=== PATIENT | male | born 1970 | race Two or more races ===

== ENCOUNTER 2022-08-11 18:49 | Emergency (ER) | payer MEDICAID, OTHER ==
[~2022-08-11] VITALS: Ht 193 cm; Wt 120.5 kg
[2022-08-11] MEDS ORDERED: ONDANSETRON HCL 4 MG/2 ML VIAL IM ONE (19:00)
[2022-08-11] MEDS ORDERED: ONDANSETRON HCL 4 MG/2 ML VIAL IV ONE (19:15)
[2022-08-11] MEDS ORDERED: SODIUM CHLORIDE 0.9% 1,000 ML IV ONE ×2 (19:15)
[2022-08-11] MEDS ORDERED: MECL25TA18 PO (19:17)
[2022-08-11 19:36] LABS: Basophils # (auto) 0.1 10 ^3/uL (0-0.2); Basophils % (auto) 0.4 % (0.0-2.0); Eosinophils # (auto) 0 10 ^3/uL (0-0.8); Eosinophils % (auto) 0.1 % (0.0-7.0); Monocytes # (auto) 0.2 10 ^3/uL (0-1.3); Neutrophils % (auto) 90.7 % (37.0-80.0); Red Cell Distribution Width 14.8 % (11.8-14.3)
[2022-08-11 19:53] LABS: Hematocrit 48.3 % (41.0-53.0); Hemoglobin 16.8 g/dL (13.5-17.5); Lymphocytes % (auto) 7.5 % (10.0-50.0); Mean Corpuscular Hemoglobin 28.5 pg (28.0-32.0); Mean Corpuscular Hgb Conc. 34.8 g/dL (32.0-36.0); Mean Corpuscular Volume 81.9 fL (80.0-100.0); Monocytes % (auto) 1.3 % (0.0-12.0); Neutrophils # (auto) 12.7 10 ^3/uL (1.6-8.6); Nucleated Red Blood Cells % 0.2 %; Red Blood Cells 5.89 10^6/uL (4.5-5.90)
[2022-08-11 20:01] LABS: Albumin 4.1 g/dL (3.4-5.0); BUN/Creatinine Ratio 24.3; Calcium 9.5 mg/dL (8.5-10.1); Potassium 3.9 mmol/L (3.5-5.1)
[2022-08-11 20:08] LABS: Bilirubin, Total 0.7 mg/dL (0.2-1.0); Total Protein 7.8 g/dL (6.4-8.2)
[2022-08-11] MEDS ORDERED: cefTRIAXone 1GM/50ML D5W 50 ML IV ONE (20:30)
[2022-08-11] MEDS ORDERED: LEVO-28 PO (20:54)
[2022-08-11 23:00] VITALS: BP 150/94
== END 2022-08-11 23:44 | disposition home or self-care (01) ==
LOC: ER 18:51
DX: J06.9 Acute upper respiratory infection, unspecified (principal); R42 Dizziness and giddiness; E11.65 Type 2 diabetes mellitus with hyperglycemia
CPT/HCPCS: 36415; 70450; 71045; 74176; 80053; 85025; 93005; 96365; 96366; 96375; 99285; J0696; J2405; J7030

== ENCOUNTER 2023-07-14 07:47 | Emergency (ER) | payer MEDICAID ==
[~2023-07-14] VITALS: Ht 193 cm; Wt 124.9 kg
[~2023-07-14 07:47] MED LIST: LEVO500T91 PO; MECL1TAB32 PO
[2023-07-14 09:23] VITALS: BP 143/85; RESP 18; TEMP 97.7; O2SAT 97
[2023-07-14 09:32] VITALS: PULSE 72
== END 2023-07-14 09:48 | disposition home or self-care (01) ==
LOC: ER 07:47
DX: I10 Essential (primary) hypertension (principal)
CPT/HCPCS: 82962; 93005

== ENCOUNTER 2024-08-23 01:10 | Inpatient (IN) | payer MEDICAID ==
[~2024-08-23] VITALS: Ht 190.5 cm; Wt 100.0 kg
[~2024-08-23 01:10] MED LIST changes: +MECL-90 PO; -MECL1TAB32 PO
--- NOTE | 2024-08-23 01:52 | ECG ---
[facility] Test Date: 2024-08-23 Test Time: 01:14:25 Pat Name: DONNELL ALANIS Department: ER Room: [address] [place] [address] Gender: M Control Officer: YOAN : 1970 Requested By: SHARAD CHRISTIANSON Order Number: [id number] Reading MD: Kel Hong Measurements Intervals [place] Rate: 85 P: 22 MT: 178 QRS: -41 QRSD: 122 T: 21 QT: 400 QTc: 476 Interpretive Statements Sinus rhythm Ventricular bigeminy RBBB and LAFB Electronically Signed On 08-30-2024 14:52:38 PST by Kel Hong Please click the below link to view image of tracing.
--- NOTE | 2024-08-23 01:57 | ED.PDOC ---
History of Present Illness HPI Comments 54-year-old male came to emergency room by your EMS due to dizziness. Patient has history of hypertension and diabetes but has poor compliance to his medications. Patient states he was asleep earlier, when he woke up at 2330 hours due sudden onset dizziness, associated most of nausea vomiting. States dizziness worsened head movements. Does have history of vertigo. Patient's blood pressure on scene was 187/150 mmHg Chief Complaint: Dizziness Time Seen by MD: 01:54 Primary Care Provider: UNK Reviewed Notes: Senior Research Associate Notes Allergies: Coded Allergies: NO KNOWN ALLERGIES (Unverified , 08/11/22) Home Meds Active Scripts Levofloxacin Hemihydrate (LEVOFLOXACIN) 500 Mg Tab, 1 TAB PO DAILY for 7 Days, #7 TAB Prov:ANGELA YOON MD 08/11/22 Meclizine Hcl (Meclizine Hcl) 25 Mg Tab, 25 MG PO DAILY PRN for 10 Days, #10 MG Prov:ANGELA YOON MD 08/11/22 Information Source: Patient Mode of Arrival: EMS Severity: Moderate Timing: Hours Duration: Intermittent Review of Systems REVIEW OF SYSTEMS: No fever, no chills, or fatigue HEENT: No sore throat, no earache, no congestion, no neck pain. Cardiac: No chest pain. No palpitations. Lungs: No shortness of breath, no cough. GI: (+) nausea, (+) vomiting, no diarrhea, no constipation, no abdominal pain : No dysuria, frequency, or urgency. No hematuria. Musculoskeletal: No joint pain , no joint swelling, no extremity edema. Skin: No rash, no itching. Neuro: No headache, (+) dizziness, no weakness Vital Signs Vital Signs Date Time Temp Pulse Resp B/P (MAP) Pulse Ox O2 Delivery O2 Flow Rate FiO2 08/23/24 01:58 85 08/23/24 01:25 98.9 20 160/97 (118) 96 Physical Exam General: Awake, alert and oriented. No acute distress. Skin: Skin in warm, dry and intact. Appropriate color for ethnicity. Nailbeds pink with no cyanosis. HEENT: The head is normocephalic and atraumatic. Conjunctivae are clear without exudates or hemorrhage. Sclera is non-icteric. EOM are intact. No signs of nystagmus. Eyelids are normal in appearance without swelling or lesions. Oral mucosa is pink and moist Neck: The neck is supple with normal range of motion. No JVD. Cardiac: Heart rate and rhythm are normal. No murmurs, gallops, or rubs are auscultated. Respiratory: No signs of respiratory distress. Lung sounds are clear in all lobes bilaterally without rales, ronchi, or wheezes. Abdominal: Abdomen is soft, non-tender without distention. Bowel sounds are present and normoactive in all four quadrants. Extremities: Upper and lower extremities are atraumatic in appearance without deformity or edema. Neurological: The patient is awake, alert and oriented to person, place, and time with normal speech. Speech is clear. There is no facial asymmetry. Psychiatric: Appropriate mood and affect. Good judgement and insight. No visual or auditory hallucinations. Past Medical History PAST MEDICAL HISTORY: DM, HTN Past Medical History (Other): Vertigo Surgical History: Denies all surgeries Surgical History (Other): Back surgery, neck ablation Family History Family History: Reviewed,noncontributory to illness Social History Smoker: Non-Smoker Alcohol: Denies ETOH Use Drugs: Denies Drug Use Lives In: Home Was a procedure done? Was a procedure done?: No EKG EKG : Pulse Rate (adult): 85 Cardiac Rhythm: NSR Comments Ventricular bigeminy Differential Dx Considerations may include: Anemia, electrolyte imbalance, vertigo, hypertensive urgency X-Ray, Labs, Meds, VS Vital Signs Date Time Temp Pulse Resp B/P (MAP) Pulse Ox O2 Delivery O2 Flow Rate FiO2 08/23/24 01:58 85 08/23/24 01:25 98.9 86 20 160/97 (118) 96 08/23/24 01:14 85 Lab Test 08/23/24 01:52 Range/Units White Blood Count 9.9 4.4-10.8 10^3/uL Red Blood Count 5.69 4.5-5.90 10^6/uL Hemoglobin 16.0 13.5-17.5 g/dL Hematocrit 46.6 41.0-53.0 % Mean Corpuscular Volume 82.0 80.0-100.0 fL Mean Corpuscular Hemoglobin 28.2 28.0-32.0 pg Mean Corpuscular Hemoglobin Concent 34.4 32.0-36.0 g/dL Red Cell Distribution Width 14.1 11.8-14.3 % Platelet Count 184 140-450 10^3/uL Mean Platelet Volume 9.3 6.9-10.8 fL Neutrophils (%) (Auto) 73.6 37.0-80.0 % Lymphocytes (%) (Auto) 15.8 10.0-50.0 % Monocytes (%) (Auto) 5.9 0.0-12.0 % Eosinophils (%) (Auto) 4.0 0.0-7.0 % Basophils (%) (Auto) 0.7 0.0-2.0 % Neutrophils # (Auto) 7.3 1.6-8.6 10 ^3/uL Lymphocytes # (Auto) 1.6 0.4-5.4 10 ^3/uL Monocytes # (Auto) 0.6 0-1.3 10 ^3/uL Eosinophils # (Auto) 0.4 0-0.8 10 ^3/uL Basophils # (Auto) 0.1 0-0.2 10 ^3/uL Nucleated Red Blood Cells 0.2 % Sodium Level 138 136-145 mmol/L Potassium Level 4.1 3.5-5.1 mmol/L Chloride Level 104 98-107 mmol/L Carbon Dioxide Level 27 20-31 mmol/L Anion Gap 7 5-15 Blood Urea Nitrogen 18 9-23 mg/dL Creatinine 1.09 0.700-1.30 mg/dL Glomerular Filtration Rate Calc 81 >90 mL/min BUN/Creatinine Ratio 16.5 10.0-20.0 Serum Glucose 242 H 74-106 mg/dL Calcium Level 9.8 8.7-10.4 mg/dL Magnesium Level 1.8 1.6-2.6 mg/dL Total Bilirubin 0.4 0.2-1.0 mg/dL Aspartate Amino Transferase (AST) 19 13-40 U/L Alanine Aminotransferase (ALT) 23 7-40 U/L Alkaline Phosphatase 68 46-116 U/L Troponin I High Sensitivity 4 </=54 ng/L Total Protein 7.1 5.7-8.2 g/dL Albumin 4.3 3.2-4.8 g/dL Lipase 43 12-53 U/L Time of 1ST Reevaluation: 01:51 Reevaluation 1ST: Unchanged Patient Education/Counseling: Diagnosis, Treatment Family Education/Counseling: No Family Present Departure 1 Departure Time of Disposition: 03:46 Impression: Primary Impression: Vertigo Additional Impressions: Intractable nausea and vomiting Uncontrolled hypertension Hyperglycemia Disposition: ADMITTED INPATIENT Condition: Stable Comments 54-year-old male who presents to the emergency department with symptoms of his typical vertigo, associated with vomiting. Patient initially improved upon arrival to the ED however he continued to vomit. Admit to - I reviewed the following notes from the pt's past medical encounters: N/A The following tests were ordered, and results were reviewed by me: (See diagnostic results section) The following test were independently interpreted by me: EKG Additional information was gathered from interviewing the following independent historians: (N/A) I reviewed and agreed with the following test results read by other providers: N/A I discussed treatments and results with medical personnel and: N/A Critical Care Note Critical Care Time?: No Stability Stability form required: No I personally scribed for SHARAD CHRISTIANSON MD ([employer]) on 08/23/24 at 01:57. Electronically submitted by Juan Ramon Cee ([email or web address]). I personally scribed for SHARAD CHRISTIANSON MD ([email or web address]) on 08/23/24 at 01:58. Electronically submitted by Juan Ramon Cee ([email or web address]). SHARAD CHRISTIANSON MD Aug 23, 2024 01:57
[2024-08-23 02:25] LABS: Alanine Aminotransferase 23 U/L (7-40); Alkaline Phosphatase 68 U/L (46-116); Anion Gap 7 (5-15); Aspartate Aminotransferase 19 U/L (13-40); BUN/Creatinine Ratio 16.5 (10.0-20.0); Blood Urea Nitrogen 18 mg/dL (9-23); Calcium 9.8 mg/dL (8.7-10.4); Carbon Dioxide 27 mmol/L (20-31); Chloride 104 mmol/L (98-107); Magnesium 1.8 mg/dL (1.6-2.6); Potassium 4.1 mmol/L (3.5-5.1); Sodium 138 mmol/L (136-145)
[2024-08-23 02:26] LABS: Albumin 4.3 g/dL (3.2-4.8); Bilirubin, Total 0.4 mg/dL (0.2-1.0); Total Protein 7.1 g/dL (5.7-8.2)
[2024-08-23 02:44] LABS: Glucose 242 mg/dL (74-106)
[2024-08-23 02:45] LABS: Basophils # (auto) 0.1 10 ^3/uL (0-0.2); Basophils % (auto) 0.7 % (0.0-2.0); Eosinophils # (auto) 0.4 10 ^3/uL (0-0.8); Hematocrit 46.6 % (41.0-53.0); Lymphocytes # (auto) 1.6 10 ^3/uL (0.4-5.4); Lymphocytes % (auto) 15.8 % (10.0-50.0); Mean Corpuscular Hemoglobin 28.2 pg (28.0-32.0); Mean Corpuscular Hgb Conc. 34.4 g/dL (32.0-36.0); Monocytes # (auto) 0.6 10 ^3/uL (0-1.3); Monocytes % (auto) 5.9 % (0.0-12.0); Neutrophils # (auto) 7.3 10 ^3/uL (1.6-8.6); Neutrophils % (auto) 73.6 % (37.0-80.0); Nucleated Red Blood Cells % 0.2 %; Platelet Count (auto) 184 10^3/uL (140-450); Red Blood Cells 5.69 10^6/uL (4.5-5.90); Red Cell Distribution Width 14.1 % (11.8-14.3); White Blood Cell 9.9 10^3/uL (4.4-10.8)
[2024-08-23 03:09] LABS: Lipase 43 U/L (12-53)
[2024-08-23 04:06] VITALS: PULSE 84; RESP 20; O2SAT 95
[2024-08-23] MEDS: ONDANSETRON HCL 4 MG/2 ML VIAL IV ONE (04:09)
[2024-08-23] MEDS: MECLIZINE HCL 25 MG TAB PO ONE (04:11)
[2024-08-23] MEDS: SODIUM CHLORIDE 0.9% 1,000 ML IV ONE (04:11)
[2024-08-23] MEDS: hydrALAZINE HCL 20 MG/ML VL IV ONE (04:20)
[2024-08-23 10:02] VITALS: TEMP 97.7
[2024-08-23] MEDS ORDERED: MECLIZINE HCL 25 MG TAB PO PRN (10:15)
[2024-08-23] MEDS ORDERED: MORPHINE SULFATE INJ 2 MG/ml SYRG IV PRN (10:15)
[2024-08-23] MEDS ORDERED: ONDANSETRON HCL 4 MG/2 ML VIAL IV PRN (10:15)
[2024-08-23] MEDS ORDERED: DEXTROSE (50%) 50ML SYRG IV PRN (10:15)
[2024-08-23] MEDS ORDERED: hydrALAZINE HCL 20 MG/ML VL IV PRN (10:15)
[2024-08-23] MEDS ORDERED: NITROGLYCERIN 0.4 MG SL TAB SL PRN (10:15)
--- NOTE | 2024-08-23 10:21 | DVHHP2 ---
History of Present Illness Reason for Visit: DIZZINESS LIKELY DUE TO UNCONTROLLED HYPERTENSION History of Present Illness This is a 54-year-old male with history of hypertension and type 2 DM who prese nts to the ED via EMS due to dizziness associated with nausea and vomiting. Upon evaluation of patient in the emergency room, he reports history of vertigo is currently seeing a neurologist down the [place], takes meclizine. He denies recent injury or trauma to his head. He states what prompted him to report to the emergency room is his elevated blood pressure associated with nausea and vomiting. He will be admitted under hospitalist care to the telemetry unit for further monitoring. He denies fever, chills, headache, palpitation, chest pain, shortness of breath, abdominal pain, diarrhea, constipation and other associated symptoms. Plan has been discussed with the patient in which all questions concerns have been addressed. 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 Endocrine: Diabetes Past Surgical History Neck ablation Back surgery Family History: None Smoke: No ALCOHOL: none Drugs: None Lives: with Family Domestic Violence: Neg Review of Systems Gastrointestinal: Nausea, Vomiting Allergies: Coded Allergies: NO KNOWN ALLERGIES (Unverified , 08/11/22) Medications Current Medications Medications Dose Ordered Sig/Jose Route Start Time Stop Time Status Last Admin Dose Admin Meclizine HCl 25 mg DAILY PRN PO 08/23/24 10:15 UNV Sodium Chloride 1,000 ml @ 60 mls/hr [id number] IV 08/23/24 10:15 UNV Ondansetron HCl 4 mg Q4HP PRN IV 08/23/24 10:15 UNV Acetaminophen 650 mg Q6HP PRN PO 08/23/24 10:15 UNV Nitroglycerin 0.4 mg Q5MINP PRN SL 08/23/24 10:15 UNV Morphine Sulfate 2 mg Q30M PRN IV 08/23/24 10:15 UNV Diagnostic Test (Pha) 1 strip ACHS 08/23/24 11:30 UNV Insulin Human Regular ACHS SC 08/23/24 11:30 UNV Dextrose 50 ml UD PRN IV 08/23/24 10:15 UNV Exam Vital Signs Vital Signs Date Time Temp Pulse Resp B/P (MAP) Pulse Ox O2 Delivery O2 Flow Rate FiO2 08/23/24 10:02 97.7 78 20 136/84 (101) 95 97.7 08/23/24 09:45 Room Air* 0 21 General Appearance: Alert, Oriented X3, Cooperative, No acute distress HEENT: Atraumatic, PERRLA, Mucous membr. moist/pink Respiratory: Clear to auscultation, Normal air movement Cardiovascular: Normal S1, Normal S2, No murmurs Abdominal: Normal bowel sounds, Soft, No tenderness, No hepatospenomegaly, No masses Extremities: No clubbing, No cyanosis, Normal pulses, No tenderness/swelling Skin: No rashes, No breakdown, No significant lesion Neuro: Normal gait, Normal speech, Strength at 5/5 X4 ext, Normal tone, Sensation intact, Cranial nerves 3-12 NL, Reflexes 2+ Psych/Mental Status: Mental status NL, Mood NL Labs/Xrays Labs Test 08/23/24 01:52 Range/Units White Blood Count 9.9 4.4-10.8 10^3/uL Red Blood Count 5.69 4.5-5.90 10^6/uL Hemoglobin 16.0 13.5-17.5 g/dL Hematocrit 46.6 41.0-53.0 % Mean Corpuscular Volume 82.0 80.0-100.0 fL Mean Corpuscular Hemoglobin 28.2 28.0-32.0 pg Mean Corpuscular Hemoglobin Concent 34.4 32.0-36.0 g/dL Red Cell Distribution Width 14.1 11.8-14.3 % Platelet Count 184 140-450 10^3/uL Mean Platelet Volume 9.3 6.9-10.8 fL Neutrophils (%) (Auto) 73.6 37.0-80.0 % Lymphocytes (%) (Auto) 15.8 10.0-50.0 % Monocytes (%) (Auto) 5.9 0.0-12.0 % Eosinophils (%) (Auto) 4.0 0.0-7.0 % Basophils (%) (Auto) 0.7 0.0-2.0 % Neutrophils # (Auto) 7.3 1.6-8.6 10 ^3/uL Lymphocytes # (Auto) 1.6 0.4-5.4 10 ^3/uL Monocytes # (Auto) 0.6 0-1.3 10 ^3/uL Eosinophils # (Auto) 0.4 0-0.8 10 ^3/uL Basophils # (Auto) 0.1 0-0.2 10 ^3/uL Nucleated Red Blood Cells 0.2 % Sodium Level 138 136-145 mmol/L Potassium Level 4.1 3.5-5.1 mmol/L Chloride Level 104 98-107 mmol/L Carbon Dioxide Level 27 20-31 mmol/L Anion Gap 7 5-15 Blood Urea Nitrogen 18 9-23 mg/dL Creatinine 1.09 0.700-1.30 mg/dL Glomerular Filtration Rate Calc 81 >90 mL/min BUN/Creatinine Ratio 16.5 10.0-20.0 Serum Glucose 242 H 74-106 mg/dL Calcium Level 9.8 8.7-10.4 mg/dL Magnesium Level 1.8 1.6-2.6 mg/dL Total Bilirubin 0.4 0.2-1.0 mg/dL Aspartate Amino Transferase (AST) 19 13-40 U/L Alanine Aminotransferase (ALT) 23 7-40 U/L Alkaline Phosphatase 68 46-116 U/L Troponin I High Sensitivity 4 </=54 ng/L Total Protein 7.1 5.7-8.2 g/dL Albumin 4.3 3.2-4.8 g/dL Lipase 43 12-53 U/L Assessment/Plan Assessment/Plan Dizziness likely due to uncontrolled hypertension--patient reports to ED via EMS due to dizziness associated with nausea and vomiting Patient states history of ongoing vertigo [place] and takes meclizine Patient states what prompted him to come to the ED was due to the associated symptoms Admit to telemetry for continuous monitoring Reviewed CBC which is normal Reviewed BMP which is normal Orthostatic BP Q shift IV hydration Resume meclizine as prescribed We will consider to consult neurologist if further evaluation is needed We will consider carotid Doppler study if needed Uncontrolled hypertension IV hydralazine 10 mg p.r.n. SBP greater than 160 mmHg Start Norvasc 5 mg p.o. now and daily Continue to monitor BP Type 2 DM HGB A1c pending 1800 ADA diet Regular insulin mild SS a.c. and HS Accu-Cheks per protocol Consult ems educator to discuss diet and medical regimen --poor compliant Reconcile home medication DVT prophylaxis not indicated patient ambulatory PUD prophylaxis not indicated Labs in a.m. Discussed plan of care with the patient in which all questions concerns have been addressed Plan discussed with: Patient My Orders Orders - ASIYA JOYNER POLE SETTER Procedure Category Date Status Time Meclizine Tablet PHA 08/23/24 Logged (Antivert Tablet) 10:15 Orthostatic Vital ORDERS 08/23/24 Transmitted Signs 10:03 Orthostatic Vital ORDERS 08/24/24 Transmitted Signs 10:03 Admit ADMIT 08/23/24 Transmitted 10:03 2 Gm Sodium Diet DIET 08/23/24 Transmitted Lunch Sodium Chloride 0.9% PHA 08/23/24 Logged 10:15 Ondansetron Hcl PHA 08/23/24 Logged (Zofran) 10:15 Complete Blood Count LAB 08/24/24 Verified 04:00 Comprehensive LAB 08/24/24 Verified Metabolic Panel 04:00 Condition: Fair ANDREEA 08/23/24 In Process 10:03 Acetaminophen Tablet MERGED WITH [facility] 08/23/24 Logged (Tylenol Tablet) 10:15 Bedrest With Bathroom [facility] 08/23/24 In Process Privileg 10:03 Sequential [facility] 08/23/24 In Process Compression Device Nitroglycerin MERGED WITH [facility] 08/23/24 Logged Sublingual (Ntrostat 10:15 Morphine Sulfate MERGED WITH [facility] 08/23/24 Logged Injection 10:15 Stat Ekg For Chest [facility] 08/23/24 In Process Pain 10:03 Notify Of Changes [facility] 08/23/24 In Process From Base 10:03 Medical Certification Specialist For [facility] 08/23/24 In Process 24 Hours 10:03 Emergency Dysrhythmia [facility] 08/23/24 In Process Protocol 10:03 Rhythm Strips Once [facility] 08/23/24 In Process Every Shift 10:03 Oxygen By Nasal RT 08/23/24 Transmitted Cannula 10:03 Glucose Blood MERGED WITH [facility] 08/23/24 Logged (Accu-Chek Comfort 11:30 Insulin R (Human) PHA 08/23/24 Logged (Insulin R) 11:30 Dextrose 50% Syringe PHA 08/23/24 Logged 10:15 Hemoglobin A1c LAB 08/23/24 Logged 10:07 Date of Service: Aug 23, 2024 Billing Provider: ASIYA JOYNER Common Visit Codes: [id number] INP/OBS CARE (HIGH) ASIYA JOYNER POLE SETTER Aug 23, 2024 10:21
[2024-08-23 10:28] LABS: Urine Bacteria None Seen /hpf (None Seen)
[2024-08-23] MEDS: amLODIPine BESYLATE 5 MG TAB PO ONE (10:36)
[2024-08-23] MEDS: SODIUM CHLORIDE 0.9% 1,000 ML IV SCH (10:41)
[2024-08-23] MEDS: ACETAMINOPHEN 325 MG TAB PO PRN (10:45)
[2024-08-23 11:06] LABS: Urine Blood Negative /uL (Negative); Urine Clarity Clear (Clear); Urine Color Yellow (Yellow); Urine Protein, UAD TRACE (Negative); Urine Specific Gravity 1.031 (1.001-1.035); Urine Squamous Epithelial Cell None Seen /hpf (<5); Urine Urobilinogen Normal (Negative); Urine WBC 2 /hpf (0 - 3)
[2024-08-23] MEDS: ACCU-CHEK COMFORT CURVE STRIP VI SCH (11:52)
[2024-08-23] MEDS: InsuLIN REG 1unit/0.01ml Soln (100units/ml) SC SCH (11:59)
[2024-08-23 16:19] VITALS: BP 131/77; PULSE 73; RESP 15; O2SAT 95
[2024-08-24] MEDS ORDERED: amLODIPine BESYLATE 5 MG TAB PO SCH (10:00)
== END 2024-08-23 17:10 | disposition left against medical advice (07) | DRG 199 ==
LOC: EDBD 01:10 → ER 01:10 → TELE 10:03
PROVIDERS: ADMIT Nurse Practitioner Family; ATTEND Nurse Practitioner Family
DX: I16.0 Hypertensive urgency (principal); E11.65 Type 2 diabetes mellitus with hyperglycemia; Z53.29 Procedure and treatment not carried out because of patient's decision for other reasons
CPT/HCPCS: 36415; 80053; 81001; 81025; 82962; 83036; 83690; 83735; 84484; 85025; 93005; 96374; 96375; G0378; J1815; J2405

== ENCOUNTER 2025-02-25 00:42 | Emergency (ER) | payer MEDICAID ==
[~2025-02-25] VITALS: Ht 193 cm; Wt 60.0 kg
[2025-02-25 00:42] VITALS: BP 142/92; PULSE 73; RESP 18; TEMP 98.3; O2SAT 94
== END 2025-02-25 01:03 | disposition left against medical advice (07) ==
LOC: ER 00:42
DX: I10 Essential (primary) hypertension (principal); Z53.21 Procedure and treatment not carried out due to patient leaving prior to being seen by health care provider

== ENCOUNTER 2025-08-08 00:43 | Emergency (ER) | payer MEDICAID ==
[~2025-08-08] VITALS: Ht 193 cm; Wt 125.8 kg
--- NOTE | 2025-08-08 01:49 | ED.PDOC ---
History of Present Illness HPI Comments 55-year-old male who came to ER for headaches. Patient has a history of hypertension but has not been taking his medications. With the past 3 days patient has been experiencing left-sided headaches, left periorbital pain, blurring of vision and photophobia. No fever noted. Upon arrival blood pressure was 174/106 mm Hg Chief Complaint: Headache Time Seen by MD: 01:49 Primary Care Provider: UNK Reviewed Notes: Nurses Notes Allergies: Coded Allergies: NO KNOWN ALLERGIES (Unverified , 08/11/22) Home Meds Active Scripts Amlodipine Besylate (Amlodipine Besylate) 5 Mg Tab, 1 TAB PO DAILY, #90 TAB 3 Refills Prov:STAR STEWARD MD 08/08/25 Gabapentin (Once-Daily) (Gabapentin) 300 Mg Tab, 300 MG PO Q6HP PRN, #60 TAB Prov:STAR STEWARD MD 08/08/25 Levofloxacin Hemihydrate (LEVOFLOXACIN) 500 Mg Tab, 1 TAB PO DAILY for 7 Days, #7 TAB Prov:ANGELA YOON MD 08/11/22 Meclizine Hcl (Meclizine Hcl) 25 Mg Tab, 25 MG PO DAILY PRN for 10 Days, #10 MG Prov:ANGELA YOON MD 08/11/22 Information Source: Patient Mode of Arrival: Ambulatory Past Medical History PAST MEDICAL HISTORY: DM, HTN Surgical History: Denies all surgeries Family History Family History: Reviewed,noncontributory to illness Social History Smoker: Non-Smoker Alcohol: Denies ETOH Use Drugs: Denies Drug Use Lives In: Home Constitutional: denies: chills, diaphoresis, fatigue, fever, malaise, sweats, weakness, others EENTM: reports: blurred vision, photophobia; denies: double vision, ear bleeding, ear discharge, ear drainage, ear pain, ear ringing, eye pain, eye redness, hearing loss, mouth pain, mouth swelling, nasal discharge, nose bleeding, nose congestion, nose pain, tearing, throat pain, throat swelling, v oice changes, others Respiratory: denies: cough, hemoptysis, orthopnea, SOB at rest, shortness of breath, SOB with excertion, stridor, wheezing, others Cardiovascular: denies: chest pain, dizzy spells, diaphoresis, Dyspnea on exertion, edema, irregular heart beat, left arm pain, lightheadedness, palpitations, PND, syncope, others Gastrointestinal: denies: abdomen distended, abdominal pain, blood streaked bowels, constipated, diarrhea, dysphagia, difficulty swallowing, hematemesis, melena, nausea, poor appetite, poor fluid intake, rectal bleeding, rectal pain, vomiting, others Genitourinary: denies: burning, dysuria, flank pain, frequency, hematuria, incontinence, penile discharge, penile sore, pain, testicle pain, testicle swelling, urgency, others Neurological: reports: headache; denies: dizziness, fainting, left sided numbness, left sided weakness, numbness, paresthesia, pre-existing deficit, right sided numbness, right sided weakness, seizure, speech problems, tingling, tremors, weakness, others Musculoskeletal: denies: back pain, gout, joint pain, joint swelling, muscle pain, muscle stiffness, neck pain, others Integumetry: denies: bruises, change in color, change in hair/nails, dryness, laceration, lesions, lumps, rash, wounds, others Allergic/Immunocompromised: denies: Difficulty Healing, Frequent Infections, Hi ves, Itching, others Hematologic/Lymphatic: denies: anemia, blood clots, easy bleeding, easy bruising, swollen glands, others Endocrine: denies: excessive hunger, excessive sweating, excessive thirst, excessive urination, flushing, intolerance to cold, intolerance to heat, unexplained weight gain, unexplained weight loss, others Psychiatric: denies: anxiety, bipolar disorder, depression, hopeless, panic disorder, schizophrenia, sleepless, suicidal, others Physical Exam General Appearance: No Apparent Distress, Normal HEENT: Normal ENT Inspection, Pharynx Normal, TMs Normal Neck: Full Range of Motion, Non-Tender, Normal, Normal Inspection Respiratory: Chest Non-Tender, Lungs Clear, No Accessory Muscle Use, No Respiratory Distress, Normal Breath Sounds Cardiovascular: No Edema, No JVD, No Murmur, No Gallop, Normal Peripheral P ulses, Regular Rate/Rhythm Breast Exam: Deferred Gastrointestinal: No Organomegaly, Non Tender, No Pulsatile Mass, Normal Bowel Sounds, Soft Genitalia: Deferred Pelvic: Deferred Rectal: Deferred Extremities: No calf tenderness, Normal capillary refill, Normal inspection, Normal range of motion, Non-tender, No pedal edema Musculoskeletal : Apperance: Normal Neurologic: Alert, floor nurse II-XII nml as Tested, No Motor Deficits, Normal Affect, Normal Mood, No Sensory Deficits Cerebellar Function: Normal Reflexes: Normal Skin: Dry, Normal Color, Warm Lymphatic: No Adenopathy Was a procedure done? Was a procedure done?: No Differential Dx Considerations may include: Anemia, electrolyte imbalance, hypertensive urgency, CVA, TIA X-Ray, Labs, Meds, VS Vital Signs Date Time Temp Pulse Resp B/P (MAP) Pulse Ox O2 Delivery O2 Flow Rate FiO2 08/08/25 02:22 81 17 95 Room Air 08/08/25 02:22 97.7 81 17 152/92 (112) 95 97.7 08/08/25 00:48 98.0 80 16 174/106 97 98.0 Lab Test 08/08/25 01:40 Range/Units White Blood Count 10.8 4.4-10.8 10^3/uL Red Blood Count 5.80 4.5-5.90 10^6/uL Hemoglobin 16.2 13.5-17.5 g/dL Hematocrit 47.7 41.0-53.0 % Mean Corpuscular Volume 82.1 80.0-100.0 fL Mean Corpuscular Hemoglobin 28.0 28.0-32.0 pg Mean Corpuscular Hemoglobin Concent 34.1 32.0-36.0 g/dL Red Cell Distribution Width 14.6 H 11.8-14.3 % Platelet Count 225 140-450 10^3/uL Mean Platelet Volume 8.5 6.9-10.8 fL Neutrophils (%) (Auto) 67.8 37.0-80.0 % Lymphocytes (%) (Auto) 20.0 10.0-50.0 % Monocytes (%) (Auto) 6.2 0.0-12.0 % Eosinophils (%) (Auto) 5.3 0.0-7.0 % Basophils (%) (Auto) 0.7 0.0-2.0 % Neutrophils # (Auto) 7.3 1.6-8.6 10 ^3/uL Lymphocytes # (Auto) 2.2 0.4-5.4 10 ^3/uL Monocytes # (Auto) 0.7 0-1.3 10 ^3/uL Eosinophils # (Auto) 0.6 0-0.8 10 ^3/uL Basophils # (Auto) 0.1 0-0.2 10 ^3/uL Nucleated Red Blood Cells 0.0 % Sodium Level 139 136-145 mmol/L Potassium Level 3.9 3.5-5.1 mmol/L Chloride Level 106 98-107 mmol/L Carbon Dioxide Level 25 20-31 mmol/L Anion Gap 8 5-15 Blood Urea Nitrogen 12 9-23 mg/dL Creatinine 0.83 0.700-1.30 mg/dL Glomerular Filtration Rate Calc 104 >90 mL/min BUN/Creatinine Ratio 14.5 10.0-20.0 Serum Glucose 184 H 74-106 mg/dL Calcium Level 9.5 8.7-10.4 mg/dL Total Bilirubin 0.8 0.2-1.0 mg/dL Aspartate Amino Transferase (AST) 20 13-40 U/L Alanine Aminotransferase (ALT) 19 7-40 U/L Alkaline Phosphatase 68 46-116 U/L Total Protein 7.7 5.7-8.2 g/dL Albumin 4.4 3.2-4.8 g/dL Current Medications Medications (Trade) Dose Ordered Sig/Jose Route Start Time Stop Time Status Last Admin Acetaminophen/ Hydrocodone Bitart ([place] 10/325MG Tab) 1 tab ONCE ONCE PO 08/08/25 01:30 08/08/25 01:33 DC 08/08/25 02:22 Time of 1ST Reevaluation: 01:47 Reevaluation 1ST: Unchanged Patient Education/Counseling: Diagnosis, Treatment Family Education/Counseling: No Family Present SEPSIS Sepsis Screen Date sepsis recognized/suspect: Aug 08, 2025 Time Sepsis recognized/suspect: 50 Recent Procedure: No On Antibiotic Therapy: No Respiratory Rate >20: No Heart Rate >90: No Temp<36 C (96.8 F) or >38.3 C: No SBP <90 or MAP <65 mmHG: No New Acute Mental Status Change: No Is the patient on CPAP, BIPAP,: No Physician Orders Head Without Contrast (08/08/25 01:30) Playground Official (08/08/25 01:30) Vital Signs Date Time Temp Pulse Resp B/P (MAP) Pulse Ox O2 Delivery O2 Flow Rate FiO2 08/08/25 02:22 81 17 95 Room Air 08/08/25 02:22 97.7 81 17 152/92 (112) 95 97.7 08/08/25 00:48 98.0 80 16 174/106 97 98.0 Laboratory Tests Test 08/08/25 01:40 White Blood Count 10.8 10^3/uL (4.4-10.8) Departure 1 Departure Time of Disposition: 03:30 Impression: Primary Impression: Hypertensive urgency Additional Impression: Headache Disposition: HOME / SELF CARE / HOMELESS Condition: Stable e-Prescriptions Amlodipine Besylate (Amlodipine Besylate) 5 Mg Tab 1 TAB PO DAILY, #90 TAB 3 Refills Prov: STAR STEWARD MD 08/08/25 Gabapentin (Once-Daily) (Gabapentin) 300 Mg Tab 300 MG PO Q6HP PRN, #60 TAB Prov: STAR STEWARD MD 08/08/25 Discharged With: Self Critical Care Note Critical Care Time?: No Stability Stability form required: No Heart Score Heart Score: Heart Score Response (Comments) Value History N/A 0 EKG N/A 0 Age N/A 0 Risk Factors N/A 0 Troponin N/A 0 Total 0 I personally scribed for STAR STEWARD MD ([email or web address]) on 08/08/25 at 01:49. Electronically submitted by Juan Ramon Cee ([facility]). STAR STEWARD MD Aug 08, 2025 01:49
[2025-08-08 01:51] LABS: Hematocrit 47.7 % (41.0-53.0); Hemoglobin 16.2 g/dL (13.5-17.5); Mean Corpuscular Hemoglobin 28.0 pg (28.0-32.0); Mean Corpuscular Volume 82.1 fL (80.0-100.0); Nucleated Red Blood Cells % 0.0 %
[2025-08-08 02:06] LABS: Alanine Aminotransferase 19 U/L (7-40); Albumin 4.4 g/dL (3.2-4.8); Alkaline Phosphatase 68 U/L (46-116); Anion Gap 8 (5-15); BUN/Creatinine Ratio 14.5 (10.0-20.0); Bilirubin, Total 0.8 mg/dL (0.2-1.0); Blood Urea Nitrogen 12 mg/dL (9-23); Calcium 9.5 mg/dL (8.7-10.4); Carbon Dioxide 25 mmol/L (20-31); Chloride 106 mmol/L (98-107); Potassium 3.9 mmol/L (3.5-5.1); Sodium 139 mmol/L (136-145); Total Protein 7.7 g/dL (5.7-8.2)
[2025-08-08 02:22] VITALS: BP 152/92; PULSE 81; RESP 17; TEMP 97.7; O2SAT 95
[2025-08-08] MEDS: HYDROcodone-ACET 10/325MG TAB PO ONE (02:22)
--- NOTE | 2025-08-08 02:33 | DVH ---
INDICATION: headache COMPARISON: HEAD WITHOUT CONTRAST on DOS: 08/11/22 TECHNIQUE: Utilizing a multislice CT scanner, a CT scan of the brain was performed without intravenous contrast. Coronal and sagittal reformatted images. All CT scans at this facility use dose modulation, iterative reconstruction, and/or weight based dosing when appropriate to reduce radiation dose to as low as reasonably achievable. FINDINGS: There is no acute infarct, intracranial hemorrhage, or mass effect. There is no hydrocephalus or significant midline shift. There is mild chronic microvascular ischemic changes and mild parenchymal volume loss. No acute, depressed calvarial fractures. No large scalp hematomas. IMPRESSION: 1. No acute intracranial process.
[2025-08-08 02:47] LABS: Glucose 184 mg/dL (74-106)
[2025-08-08] MEDS ORDERED: AMLO1TAB22 PO (03:23)
[2025-08-08] MEDS ORDERED: GABA300T4 PO (03:23)
== END 2025-08-08 04:19 | disposition home or self-care (01) ==
LOC: ER 00:43
DX: I16.0 Hypertensive urgency (principal); R51.9 Headache, unspecified; I10 Essential (primary) hypertension; E11.9 Type 2 diabetes mellitus without complications; Z79.899 Other long term (current) drug therapy
CPT/HCPCS: 36415; 70450; 80053; 85025